=== PATIENT | female | born 1950 | race Caucasian/White ===

== ENCOUNTER → 2016-11-04 | Day surgery (SDC) | payer BC ==
[~2016-11-04] MED LIST: LIDOCAINE 2% VISCOUS(20 MG/1 ML) - 15 ML UD CUP PO ONE; LIDOCAINE W/ SODIUM BICARB 0.5 ML SYR ONE; Lactated Ringers 1,000 ML PRIMARY IV ONE; MIDAZOLAM 5 MG/1 ML ONE; fentaNYL Inj 100 MCG/2 ML VIAL ONE
[2016-11-04 07:45] VITALS: RESP 16; TEMP 96.6
--- NOTE | 2016-11-04 08:46 | GEN.OPNOTE ---
EGD / Colonoscopy Report Surgery Date: 11/04/16 Preoperative Diagnosis: GERD. Colon cancer screening. Postoperative Diagnosis: GERD. Colon cancer screening. Hiatal hernia. Procedure: #1 esophagogastroduodenoscopy with biopsy. #2 complete colonoscopy. Surgeon: Vamsi Hodges MD Anesthesia Provider: James Turner CRNA Anesthesia Type: MAC Indications: See preoperative diagnosis. EGD Findings: Esophagus: [Normal] GE Junction : [Some inflammation. Hiatal hernia.] Fundus : [Normal] Body : [Normal] Prepyloric : [Mild erythema] Small Intestine : [Normal] A lubricated flexible upper endoscope was inserted and passed through the esophagus and stomach into the duodenum. The duodenum and duodenal bulb were unremarkable. The pyloric channel was widely patent. There is some mild erythema in the antrum. Biopsies were taken to rule out H. pylori. The scope was retroflexed. The remainder of the stomach was unremarkable. The scope was straightened. Air was aspirated. The scope was withdrawn into the distal esophagus. There was a 4 cm hiatal hernia. There are some inflammatory changes at the Z line. Multiple biopsies were taken. Hemostasis was assured. The scope was then withdrawn through the remainder of a normal-appearing esophagus and brought the hypopharynx under section completing the procedure. There were no evidence of strictures or narrowings. Patient tolerated the procedure well and we proceeded with the colonoscopy. We will start patient on pantoprazole 40 mg by mouth daily and see if that works better than the omeprazole for her reflux. Colonoscopy Findings: Prep : [Good] Cecum : [Normal] Ascending : [Normal] Transverse : [Normal] Sigmoid : [Normal] Rectum : [Normal] Digital Rectal Exam : [Normal] A lubricated flexible colonoscope was inserted and passed to the blind end of the cecum. The ileocecal valve and appendiceal orifice were clearly seen. Air was aspirated as the scope was withdrawn. Entire colonoscopy was normal without polyp, tumor, neoplastic mass, infectious or inflammatory process. The scope was withdrawn completing the procedure. Patient tolerated all aspects of the procedure well without complication. She was taken to outpatient surgery in stable condition. Follow-up will be with my office on an as-needed basis. We will call the biopsy results and plan therapy and follow-up accordingly. It is recommended she undergo colonoscopy in 10 years.
== END ==
LOC: SDSC 07:13
PROVIDERS: ATTEND Surgery
DX: K21.0 Gastro-esophageal reflux disease with esophagitis (principal); Z12.11 Encounter for screening for malignant neoplasm of colon; K44.9 Diaphragmatic hernia without obstruction or gangrene
CPT/HCPCS: 43239; 45378; J2704; J3010; J2250; J7120

== ENCOUNTER 2016-11-08 14:24 | Emergency (ER) | payer BC ==
[2016-11-08] MEDS ORDERED: ASPIRIN 81 MG (BABY) CHEWABLE TABLET ONE (14:33)
[2016-11-08 14:40] VITALS: RESP 12; TEMP 97.6
[2016-11-08] MEDS ORDERED: NORMAL SALINE 10 ML SYRINGE FLUSH IVP PRN (14:43)
[2016-11-08] MEDS ORDERED: Sodium Chloride 0.9% 1,000 ML PRIMARY IV ONE (14:45)
[2016-11-08] MEDS: ASPIRIN 81 MG (BABY) CHEWABLE TABLET PO ONE ×2 (14:46→14:47)
--- NOTE | 2016-11-08 14:46 | EKG ---
[address] [address] Measurements Intervals [place] Rate: 55 P: 49 [place]: 168 QRS: -21 QRSD: 102 T: 34 QT: 443 QTc: 431 Interpretive Statements SINUS BRADYCARDIA No previous ECG available for comparison Electronically Signed On 11-08-16 15:26:34 MST by Qasim Noonan [email or web address]
[2016-11-08 14:51] LABS: BASOPHILS # (AUTO) 0.07 10*3/UL; BASOPHILS % (AUTO) 1.1 % (0-1); EOSINOPHILS % (AUTO) 5.4 % (0-8); HEMATOCRIT 44.6 % (37.0-47.0); HEMOGLOBIN 14.9 g/dL (12.0-16.0); IMM GRAN % (AUTO) 0.2 % (0-5); IMM GRAN# (AUTO) 0.01 10*3/UL; LYMPHOCYTES # (AUTO) 2.39 10*3/uL; MEAN CORPUSCULAR HEMOGLOBIN 30.6 PG (27-31); MEAN CORPUSCULAR HGB CONC 33.4 g/dL (33-37); MEAN PLATELET VOLUME 10.2 FL (7.4-12.2); MONOCYTES # (AUTO) 0.42 10*3/UL (0.3-0.8); MONOCYTES % (AUTO) 6.3 % (5-15); NEUTROPHILS # (AUTO) 3.39 10*3/UL; RDW COEFFICIENT OF VARIATION 13.2 % (11.5-14.5); RED BLOOD COUNT 4.87 10^6/uL (4.20-5.40); WHITE BLOOD COUNT 6.64 10^3/uL (4.8-10.8)
[2016-11-08 14:53] LABS: PLATELET MORPHOLOGY COMMENT NORMAL MORPHOLOGY (NORM)
--- NOTE | 2016-11-08 15:01 | DI ---
[facility] CHEST X-RAY, 11/08/2016 2:43 PM : Clinical History: Chest pain. Previous Exam: None at this facility. There is no acute soft tissue or bony abnormality. Heart size is normal. Lungs are clear. Mediastinal structures are normal. There are no pulmonary nodules. Reading: Normal chest x-ray.
[2016-11-08 15:10] LABS: CREATINE KINASE MB 1.54 NG/DL (0.00-5.00)
[2016-11-08 15:17] LABS: TROPONIN I < 0.012 ng/mL (< 0.040)
[2016-11-08 15:25] LABS: ASPARTATE AMINO TRANSFERASE 23 IU/L (8-39); BILIRUBIN,TOTAL 0.3 mg/dL (0.3-1.2); BLOOD UREA NITROGEN 10 mg/dL (7-22); BUN/CREATININE RATIO 14.28 (6-20); CHLORIDE 105 meq/L (98-112); CREATININE 0.7 mg/dL (0.50-1.20); EST GLOMERULAR FILTRATION > 60 (>60 ml/min/1.73m(2)); GLUCOSE 101 mg/dL (78-110); SODIUM 141 meq/L (135-145); TOTAL PROTEIN 7.1 g/dL (6.1-8.0)
[2016-11-08] MEDS ORDERED: Sodium Chloride 0.9% 1,000 ML ONE (18:05)
--- NOTE | 2016-11-09 00:38 | PDOC ---
Chest Pain HPI - General Chief Complaint: Chest Pain Stated Complaint: CHEST PAIN Date Seen by Provider: 11/08/16 Time Seen by Provider: 14:30 Source: Patient, Other (Daughter) Exam Limitations: POSITIVE: No limitations Treatment Prior to Arrival: REPORTS: Aspirin Nurse's Notes Reviewed & Considered: Yes - History of Present Illness Initial Comments: The patient is a 66-year-old female. She states that for the past 3 days she has had episodes of midsternal chest discomfort. She states the discomfort is very positional and states that when she turns "the wrong way"she will feel some chest discomfort. The episodes last a few seconds; always less than a minute, and are relieved by changing position. She also has discomfort on direct palpation over the left parasternal area. She's been sleeping well and has no discomfort at night. She has not smoked for 25-30 years. No dyspnea. No cough or URI symptoms. Patient did have upper and lower endoscopy this past Friday. Body Location Affected: REPORTS: Chest Timing: REPORTS: Abrupt, Intermittent Duration: Other (Episodes last less than a minute and or positional) Severity: Moderate Gone now, lasted (minutes):: 1 Intermittent Episodes Lasting (minutes): 1 Persistent/Worse since (date): 11/05/16 Context: REPORTS: Activity (Changing position) Quality: REPORTS: "Pain", Sharpness Radiation: REPORTS: None Associated Symptoms: DENIES: Nausea, Vomiting, Diaphoresis, Shortness of Breath , Hurts to Breathe, Palpitations, Productive Cough (blood), Productive Cough ( sputum), Weakness, Dizziness Modifying Factors: improves with: Position Change, Pressing On Area Similar Symptoms Previously: No Recently seen/treated/hospitalized: No Any Prior Injuries Related to Current Complaint?: No - Patient Home Medications Home Medications: Home Medications Acai Billy Extract [Acai] 1 cap PO BID cap 10/05/15 Aspirin [Arti Chewable Aspirin] 1 tab PO DAILY tab 10/05/15 Ca Carbonate/Vitamin D3/Vit K [Citracal Soft Chew] 1 tab PO QD tab 10/05/15 Cholecalciferol (Vitamin D3) [Vitamin D] 1 cap PO QD cap 10/05/15 Fish Oil/Dha/Epa [Fish Oil 1,200 Mg Fish Oil] 1 each PO TID cap 10/05/15 Folic Acid/Mv,Fe,Other Min [Centrum Chewable Tablet] 1 each PO QD tab 10/05/15 Vitamin E (Dl,Tocopheryl Acet) [Vitamin E] 1 cap PO QD cap 10/05/15 Simvastatin 1 tab PO DAILY #90 tab 03/11/16 Oxybutynin Chloride [Ditropan Xl] 1 tab PO DAILY #90 tab 03/27/16 Levothyroxine Sodium 1 tab PO DAILY #30 tab 04/24/16 Quinapril HCl 1 tab PO DAILY #90 tab 04/24/16 Metoprolol Succinate 1 tab PO DAILY #90 tab 05/06/16 Estrogens, Conjugated Tab [Premarin Tab] 1 tab PO DAILY #30 tab 05/17/16 Magnesium Oxide [Magnesium] 1 cap PO QD cap 10/17/16 Meloxicam 1 tab PO DAILY #30 tab 10/17/16 Omeprazole 1 cap PO BID #60 cap 10/17/16 Ropinirole HCl 0.5 mg PO QHS #30 tab 10/17/16 Pantoprazole Sodium 40 mg PO DAILY #90 tab 11/04/16 - Patient Allergies Allergies/Adverse Reactions: Allergies Allergy/AdvReac Type Severity Reaction Status Date / Time Sulfa (Sulfonamide AdvReac Mild NOT Verified 11/08/16 14:30 Antibiotics) APPLICABLE Past Medical History - heen HEENT History: Denies History Cardiovascular History: Hypertension, Hyperlipidemia Respiratory History: Denies History Gastrointestinal History: GERD Genitourinary History: Denies History Endocrine History: Hypothyroidism Musculoskeletal History: Denies History Prosthesis or Implant: No Neurological History: Denies History Blood Disorders: Denies History Psychiatric History: Denies History History of Sexually Transmitted Diseases: No Female Reproductive History: Hysterectomy Cancer History: Denies History In Past Year Been Physically Harmed or Verbally Threatened: No History of MDRO: No History of Other Communicable Diseases: No Tobacco Use: Former Smoker Alcohol Use: Occasionally Substance Use Type: None Previous Surgical History: Yes Type / Date of Surgery: RIGHT BREAST BX/ HYST/ LEFT KNEE SCOPE/ TONSILLECTOMY Anesthesia Reactions: No Malignant Hyperthermia: No Past Medical History Reviewed: Reviewed - No Changes ROS - Limitations ROS Limitations: No Limitations Constitution: REPORTS: Denies Symptoms Cardiovascular: REPORTS: Chest Pain Respiratory: REPORTS: Denies Resp Symptoms Neurological: REPORTS: Denies Neuro Symptoms Gastrointestinal: REPORTS: Denies GI Symptoms Endocrine: REPORTS: Denies Symptoms Musculoskeletal: REPORTS: Denies MS Symptoms Genitourinary: REPORTS: Denies Symptoms Eyes: REPORTS: Denies Symptoms ENT: REPORTS: Denies Symptoms Skin: REPORTS: Denies Skin Symptoms Lympathic: REPORTS: Denies Lympathic Symptoms Immunologic: POSITIVE: Denies Symptoms Psychiatric: POSITIVE: Denies Psych Symptoms Chest Pain PE - General Appearance General Appearance: REPORTS: Alert, Cooperative, No Acute Distress, No Evidence of Trauma - HEENT HEENT: POSITIVE: Head Inspection Nml, Eyes Inspection Nml, Ears Inspection Nml, Nose Inspection Nml, Oral/Dental Inspect. Nml, Pharynx Inspect. Nml, PERRL, EOMI - Neck Neck: REPORTS: Normal Inspection, No Carotid Bruit - Respiratory Respiratory: REPORTS: No Respiratory Distress, Breath Sounds Normal. DENIES: Chest Non-Tender (Tenderness on palpation left parasternal area, upper) - Cardiovascular Cardiovascular: REPORTS: Regular Rate and Rhythm, Heart Sounds Normal, Equal Pulses, Strong Pulses, No Murmur, No Gallop, No Friction Rub, No JVD Peripheral Pulses: Radial (R): 2+, Radial (L): 2+ - Abdomen Abdomen: Soft: (All Quadrants), Normal Bowel Sounds: (All Quadrants), Denies Tenderness: (All Quadrants), No Splenomegaly: (All Quadrants), No Hepatomegaly: (All Quadrants), No Guarding: (All Quadrants), No Rebound: (All Quadrants), No Palpable Pulse: (All Quadrants), No Palpabale Mass: (All Quadrants), No Distention: (All Quadrants), No Rigidity: (All Quadrants) - Skin Skin: REPORTS: Intact, Normal For Race, Warm, Dry, No Rash - Extremities Extremity: Non-Tender: (All Extremities), Normal ROM: (All Extremities), Normal Inspection: (All Extremities) - Neurological / Psychological Neurological: POSITIVE: 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, 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 As Tested, Motor Normal, Sensation Normal, 5, 6 Images - Complete Complete: 1 - Area of described discomfort and tenderness on palpation Chest Pain Progress - Results Reviewed by me Xrays/CTs/US Reviewed by me: Yes Discussed with Radiologist: Yes Radiology Findings: PA chest x-ray normal Lab Results Reviewed: Yes (all normal) Lab Results:: Laboratory Results 11/08/16 Range/Units 14:35 WBC 6.64 (4.8-10.8) 10^3/uL RBC 4.87 (4.20-5.40) 10^6/uL Hgb 14.9 (12.0-16.0) g/dL Hct 44.6 (37.0-47.0) % MCV 91.6 (81-99) FL MCH 30.6 (27-31) PG MCHC 33.4 (33-37) g/dL RDW Std Deviation 43.7 (39-50) fL RDW Coeff of Rodrigo 13.2 (11.5-14.5) % Plt Count 245 (140-350) 10*3/uL MPV 10.2 (7.4-12.2) FL Immature Gran % (Auto) 0.2 (0-5) % Neut % (Auto) 51.0 (50-80) % Lymph % (Auto) 36.0 (10-50) % Sargent % (Auto) 6.3 (5-15) % Eos % (Auto) 5.4 (0-8) % Baso % (Auto) 1.1 H (0-1) % Immature Gran # (Auto) 0.01 10*3/UL Neut # (Auto) 3.39 10*3/UL Lymph # (Auto) 2.39 10*3/uL Sargent # (Auto) 0.42 (0.3-0.8) 10*3/UL Eos # (Auto) 0.36 10*3/UL Baso # (Auto) 0.07 10*3/UL WBC Morphology Comment Normal morphology (NORM) Plt Morphology Comment Normal morphology (NORM) RBC Morph Comment Normal morphology (NORM) D-Dimer 0.49 (0.00-0.59) mg/L Sodium 141 (135-145) meq/L Potassium 4.0 (3.8-5.2) meq/L Chloride 105 (98-112) meq/L Carbon Dioxide 25 (23-33) meq/L Anion Gap 11 (5-20) BUN 10 (7-22) mg/dL Creatinine 0.7 (0.50-1.20) mg/dL Estimated GFR > 60 (>60 ml/min/1.73m(2)) BUN/Creatinine Ratio 14.28 (6-20) Glucose 101 (78-110) mg/dL Calculated Osmolality 290.0 (267-292) mOsm/kg Calcium 10.0 (8.7-10.7) mg/dL Total Bilirubin 0.3 (0.3-1.2) mg/dL AST 23 (8-39) IU/L ALT 32 (9-52) IU/L Alkaline Phosphatase 56 (38-126) IU/L CK-MB (CK-2) 1.54 (0.00-5.00) NG/DL Troponin I < 0.012 (< 0.040) ng/mL Total Protein 7.1 (6.1-8.0) g/dL Albumin 4.0 (3.5-4.8) g/dL Globulin 3.0 (2.50-4.10) g/dL Albumin/Globulin Ratio 1.30 (1.3-2.0) mg/g EKG Interpreted/Reviewed By Me:: Yes (normal) EKG Interpretation:: POSITIVE: Normal Sinus Rhythm, Normal Rate, Normal Intervals, Normal [place], Normal QRS, Normal ST/T - Patient's Progress Pain Medication Addressed: POSITIVE: Not Applicable School/Work Release Addressed: POSITIVE: Not Applicable Re-Examine Time: 15:40 Re-Examine Comment: No chest pain on discharge, except for some discomfort on direct palpation left para sternal area Status: POSITIVE: Improved, Re-Examined Quality Measure Initiative: CP/AMI: POSITIVE: EKG, ASA - Consult Counseled: POSITIVE: Patient, Family, RE: Lab Results, RE: Radiology Results, RE : DX, RE: Need for F/U Patient Care Time - Estimated PCT Patient Care Time (In Minutes): 35 Vital Signs - VS Reviewed Vital Signs Reviewed: Yes Discharge Clinical Impression: Atypical chest pain Discharge Disposition: Discharged to Home Condition: Stable Patient Instructions Given at Discharge: Chest Pain (ED) Additional Instructions: Your electrocardiogram, chest x-ray, and all your blood tests, including a screening test for blood clots to the lung and a test for any damage to the heart, are all normal. I think it is unlikely that your chest discomfort is coming from the heart, but I cannot absolutely guarantee this. I think your pain is more likely musculoskeletal and is coming from the chest wall. I do think, however, that you should have a cardiac stress test, which can be arranged through your primary care provider. Continue to take one baby aspirin daily. Return here anytime if condition worsens in any way. Follow-up with your primary care provider. Follow Up With: DEJA FERRARI [Primary Care Provider] - (Return if pain becomes persistent or severe or if condition worsens in any way. Follow-up with your primary care provider and I recommend you do have a cardiac stress test. Continue taking 1 baby aspirin daily.)
== END 2016-11-08 15:52 | disposition home or self-care (01) ==
LOC: ER 14:24
DX: R07.89 Other chest pain (principal)
CPT/HCPCS: 71010; 80053; 82553; 84484; 85025; 85379; 93005; 93010; 99284; J7030